=== PATIENT | female | born 1980 | race Caucasian/White ===

== ENCOUNTER 2021-11-15 17:01 | Inpatient (IN) | payer MEDICAID ==
[~2021-11-15] VITALS: Ht 160 cm; Wt 97.3 kg
[2021-11-16 13:00] VITALS: BP 145/71
[2021-11-16] MEDS ORDERED: METF-372 PO (13:48)
[2021-11-16] MEDS ORDERED: AZIT250T9 PO (13:48)
[2021-11-16] MEDS ORDERED: PROM1SOL4 PO (13:48)
[2021-11-16] MEDS ORDERED: LISI-275 PO (13:48)
[2021-11-16] MEDS ORDERED: LEVO50TA7 PO (13:48)
[2021-11-16] MEDS ORDERED: VANCOMYCIN PER PHARMACY 0 MG IV SCH (16:45)
[2021-11-16] MEDS ORDERED: PERMETHRIN 1% TOP ONE (16:45)
[2021-11-16 17:00] VITALS: BP 121/55
[2021-11-16] MEDS: FLORASTOR (S. BOULARDII) 250 MG CAP PO SCH (17:10)
[2021-11-16] MEDS ORDERED: levoFLOXacin 750MG 150 ML IV SCH (18:00)
[2021-11-16 19:06] LABS: Basophils # (auto) 0.2 10 ^3/uL (0-0.2); Basophils % (auto) 1.1 % (0.0-2.0); Eosinophils # (auto) 0.5 10 ^3/uL (0-0.8); Eosinophils % (auto) 3.2 % (0.0-7.0); Hematocrit 46.6 % (36.0-46.0); Hemoglobin 15.4 g/dL (12.2-16.2); Lymphocytes # (auto) 2.2 10 ^3/uL (0.4-5.4); Lymphocytes % (auto) 15.5 % (10.0-50.0); Mean Corpuscular Hemoglobin 30.3 pg (28.0-32.0); Monocytes # (auto) 1.1 10 ^3/uL (0-1.3); Monocytes % (auto) 7.6 % (0.0-12.0); Neutrophils # (auto) 10.3 10 ^3/uL (1.6-8.6); Neutrophils % (auto) 72.6 % (37.0-80.0); Red Blood Cells 5.06 10^6/uL (4.0-5.20); Red Cell Distribution Width 13.4 % (11.8-14.3); White Blood Cell 14.1 10^3/uL (4.4-10.8)
[2021-11-16 19:25] LABS: Albumin 3.4 g/dL (3.4-5.0); Calcium 9.7 mg/dL (8.5-10.1)
[2021-11-16 19:29] LABS: BUN/Creatinine Ratio 19.2; Bilirubin, Total 0.7 mg/dL (0.2-1.0); Total Protein 9.2 g/dL (6.4-8.2)
[2021-11-16] MEDS ORDERED: VANCOMYCIN 1GM/250ML 250 ML IV ONE (20:00)
[2021-11-16 21:00] VITALS: BP 139/80
[2021-11-16] MEDS: metroNIDAZOLE 500MG/100ML 100 ML IV SCH (22:11)
[2021-11-17 04:23] LABS: Urine Bacteria NONE SEEN /hpf (None Seen); Urine Blood Negative /uL (Negative); Urine Hyaline Cast FEW /lpf (0 - 2); Urine Specific Gravity 1.018 (1.001-1.035); Urine WBC 4 /hpf (0 - 5)
[2021-11-17 05:21] VITALS: BP 131/68
[2021-11-17] MEDS: metroNIDAZOLE 500MG/100ML 100 ML IV SCH ×3 (05:38→22:02)
[2021-11-17 08:30] VITALS: BP 143/77
[2021-11-17 13:00] VITALS: BP 137/77
[2021-11-17] MEDS ORDERED: cefTRIAXone 1GM/50ML D5W 50 ML IV ONE (14:15)
[2021-11-17] MEDS ORDERED: FLUCONAZOLE 200MG/100ML 100 ML IV ONE (14:15)
[2021-11-17] MEDS ORDERED: DEXTROSE (50%) 50ML SYRG IV PRN (14:15)
[2021-11-17] MEDS: FLORASTOR (S. BOULARDII) 250 MG CAP PO SCH (15:21)
[2021-11-17] MEDS: VANCOMYCIN 1GM/250ML 250 ML IV SCH ×2 (15:21→16:28)
[2021-11-17] MEDS: ACCU-CHEK COMFORT CURVE STRIP VI SCH ×2 (17:00→22:02)
[2021-11-17 17:08] VITALS: BP 134/85
[2021-11-17] MEDS ORDERED: IOHEXOL 300 MG/ML 100ML BOTTLE IJ ONE (17:57)
[2021-11-17] MEDS: InsuLIN REG 1unit/0.01ml Soln (100units/ml) SC SCH ×2 (19:42→22:03)
[2021-11-17 22:00] VITALS: BP 126/79
[2021-11-17] MEDS: levoFLOXacin 500MG 100 ML IV SCH (23:29)
[2021-11-18 05:00] VITALS: BP 120/61
[2021-11-18] MEDS: metroNIDAZOLE 500MG/100ML 100 ML IV SCH (06:00)
[2021-11-18] MEDS: InsuLIN REG 1unit/0.01ml Soln (100units/ml) SC SCH ×4 (06:29→22:14)
[2021-11-18] MEDS: ACCU-CHEK COMFORT CURVE STRIP VI SCH ×4 (06:29→22:13)
[2021-11-18 06:38] LABS: Basophils # (auto) 0.2 10 ^3/uL (0-0.2); Basophils % (auto) 1.1 % (0.0-2.0); Eosinophils # (auto) 0.4 10 ^3/uL (0-0.8); Hematocrit 43.9 % (36.0-46.0); Hemoglobin 14.5 g/dL (12.2-16.2); Lymphocytes # (auto) 2.4 10 ^3/uL (0.4-5.4); Lymphocytes % (auto) 16.9 % (10.0-50.0); Mean Corpuscular Hemoglobin 30.4 pg (28.0-32.0); Mean Corpuscular Hgb Conc. 33.1 g/dL (32.0-36.0); Monocytes # (auto) 1.1 10 ^3/uL (0-1.3); Monocytes % (auto) 7.8 % (0.0-12.0); Neutrophils % (auto) 71.2 % (37.0-80.0); Nucleated Red Blood Cells % 0.1 %; Red Blood Cells 4.77 10^6/uL (4.0-5.20); Red Cell Distribution Width 13.4 % (11.8-14.3)
[2021-11-18 06:44] LABS: INR 1.13 (0.9-1.15); Partial Thromboplastin Time 29.6 sec (24.6-33.4)
[2021-11-18 06:45] LABS: Potassium 4.3 mmol/L (3.5-5.1)
[2021-11-18 06:50] LABS: Albumin 3.2 g/dL (3.4-5.0); BUN/Creatinine Ratio 23.9; Bilirubin, Total 0.8 mg/dL (0.2-1.0); Calcium 9.1 mg/dL (8.5-10.1); Total Protein 7.7 g/dL (6.4-8.2)
[2021-11-18] MEDS ORDERED: LEVOTHYROXINE SODIUM 50 MCG TAB PO SCH (07:00)
[2021-11-18 09:00] VITALS: BP 141/73
[2021-11-18] MEDS ORDERED: cefTRIAXone 1GM/50ML D5W 50 ML IV SCH (09:00)
[2021-11-18] MEDS ORDERED: FLUCONAZOLE 200MG/100ML 100 ML IV SCH (10:00)
[2021-11-18] MEDS: FLORASTOR (S. BOULARDII) 250 MG CAP PO SCH (10:09)
[2021-11-18] MEDS: LISINOPRIL 5 MG TAB PO SCH (10:09)
[2021-11-18] MEDS: FLUCONAZOLE 200MG/100ML 100 ML IV SCH (10:32)
[2021-11-18 13:00] VITALS: BP 140/75
[2021-11-18] MEDS: metroNIDAZOLE 500 MG TAB PO SCH ×2 (14:00→22:03)
[2021-11-18] MEDS: VANCOMYCIN 1GM/250ML 250 ML IV SCH (14:00)
[2021-11-18 17:00] VITALS: BP 144/71
[2021-11-18] MEDS: levoFLOXacin 500MG 100 ML IV SCH (20:19)
[2021-11-19 01:25] VITALS: BP 127/70
[2021-11-19] MEDS: VANCOMYCIN 1GM/250ML 250 ML IV SCH ×2 (01:56→14:57)
[2021-11-19 05:06] VITALS: BP 152/70
[2021-11-19 06:16] LABS: Basophils # (auto) 0.2 10 ^3/uL (0-0.2); Basophils % (auto) 1.2 % (0.0-2.0); Eosinophils # (auto) 0.5 10 ^3/uL (0-0.8); Eosinophils % (auto) 3.2 % (0.0-7.0); Hemoglobin 14.7 g/dL (12.2-16.2); Lymphocytes # (auto) 2.5 10 ^3/uL (0.4-5.4); Lymphocytes % (auto) 17.6 % (10.0-50.0); Mean Corpuscular Hemoglobin 30.2 pg (28.0-32.0); Mean Corpuscular Hgb Conc. 32.7 g/dL (32.0-36.0); Mean Corpuscular Volume 92.3 fL (80.0-100.0); Monocytes # (auto) 1.2 10 ^3/uL (0-1.3); Monocytes % (auto) 8.4 % (0.0-12.0); Neutrophils # (auto) 9.8 10 ^3/uL (1.6-8.6); Neutrophils % (auto) 69.6 % (37.0-80.0); Red Blood Cells 4.88 10^6/uL (4.0-5.20); Red Cell Distribution Width 13.2 % (11.8-14.3); White Blood Cell 14.1 10^3/uL (4.4-10.8)
[2021-11-19] MEDS: metroNIDAZOLE 500 MG TAB PO SCH ×3 (06:16→21:12)
[2021-11-19] MEDS: ACCU-CHEK COMFORT CURVE STRIP VI SCH ×4 (06:28→21:12)
[2021-11-19] MEDS: LEVOTHYROXINE SODIUM 50 MCG TAB PO SCH (06:28)
[2021-11-19 06:38] LABS: BUN/Creatinine Ratio 19.6; Calcium 9.1 mg/dL (8.5-10.1); Potassium 4.9 mmol/L (3.5-5.1)
[2021-11-19] MEDS: InsuLIN REG 1unit/0.01ml Soln (100units/ml) SC SCH ×4 (06:47→21:51)
[2021-11-19 08:00] VITALS: BP 134/68
[2021-11-19 09:00] VITALS: BP 134/68
[2021-11-19] MEDS: FLUCONAZOLE 200MG/100ML 100 ML IV SCH (09:40)
[2021-11-19] MEDS: LISINOPRIL 5 MG TAB PO SCH (09:40)
[2021-11-19] MEDS: FLORASTOR (S. BOULARDII) 250 MG CAP PO SCH (09:40)
[2021-11-19 13:00] VITALS: BP 134/73
[2021-11-19 22:00] VITALS: BP 118/68
[2021-11-20] MEDS: VANCOMYCIN 1GM/250ML 250 ML IV SCH ×2 (01:55→14:00)
[2021-11-20 05:00] VITALS: BP 136/68
[2021-11-20] MEDS: metroNIDAZOLE 500 MG TAB PO SCH ×2 (06:06→14:00)
[2021-11-20] MEDS: LEVOTHYROXINE SODIUM 50 MCG TAB PO SCH (06:06)
[2021-11-20] MEDS: ACCU-CHEK COMFORT CURVE STRIP VI SCH ×3 (06:45→17:00)
[2021-11-20] MEDS: InsuLIN REG 1unit/0.01ml Soln (100units/ml) SC SCH ×3 (06:56→17:00)
[2021-11-20] MEDS: FLORASTOR (S. BOULARDII) 250 MG CAP PO SCH (08:32)
[2021-11-20] MEDS: FLUCONAZOLE 200MG/100ML 100 ML IV SCH (08:32)
[2021-11-20] MEDS: LISINOPRIL 5 MG TAB PO SCH (08:33)
[2021-11-20 08:36] VITALS: BP 134/70
[2021-11-20] MEDS ORDERED: levoFLOXacin 500 MG TAB PO SCH (10:00)
[2021-11-20] MEDS ORDERED: MET500T PO (12:18)
[2021-11-20] MEDS ORDERED: LEVO-28 PO (12:18)
[2021-11-20] MEDS ORDERED: FLUC200T50 PO (12:18)
[2021-11-20 12:29] VITALS: BP 139/72
[2021-11-20 13:10] VITALS: BP 134/70
== END 2021-11-20 20:37 | disposition home or self-care (01) | DRG 380 ==
LOC: WEST WING 11-16 12:51
PROVIDERS: ADMIT Internal Medicine; ATTEND Internal Medicine
DX: E11.621 Type 2 diabetes mellitus with foot ulcer (principal); L97.529 Non-pressure chronic ulcer of other part of left foot with unspecified severity; L97.519 Non-pressure chronic ulcer of other part of right foot with unspecified severity; J96.10 Chronic respiratory failure, unspecified whether with hypoxia or hypercapnia; L03.315 Cellulitis of perineum; B35.3 Tinea pedis; E03.9 Hypothyroidism, unspecified; N76.0 Acute vaginitis; I10 Essential (primary) hypertension; J44.9 Chronic obstructive pulmonary disease, unspecified; E66.9 Obesity, unspecified; Z83.3 Family history of diabetes mellitus; Z79.84 Long term (current) use of oral hypoglycemic drugs; Z68.38 Body mass index [BMI] 38.0-38.9, adult
CPT/HCPCS: 36415; 71045; 73620; 80048; 80053; 80202; 81001; 81025; 82962; 83036; 83605; 84443; 85025; 85610; 85730; 87040; G0378; J1450; J1815; J1956; J3490

== ENCOUNTER 2023-08-21 06:01 | Inpatient (IN) | payer MEDICAID ==
[~2023-08-21] VITALS: Ht 160 cm; Wt 94.7 kg
[~2023-08-21 06:01] MED LIST: AZIT-43 PO; FLUC200T50 PO; LEVO500T91 PO; LEVO50TA7 PO; LISI-275 PO; MET500T PO; METF-372 PO; PROM1SOL4 PO
[2023-08-21 07:27] VITALS: PULSE 93; RESP 9; O2SAT 95
[2023-08-21 08:37] LABS: Basophils # (auto) 0.2 10 ^3/uL (0-0.2); Basophils % (auto) 1.4 % (0.0-2.0); Eosinophils # (auto) 0.4 10 ^3/uL (0-0.8); Eosinophils % (auto) 3.2 % (0.0-7.0); Hematocrit 47.1 % (36.0-46.0); Hemoglobin 16.2 g/dL (12.2-16.2); Lymphocytes # (auto) 1.8 10 ^3/uL (0.4-5.4); Lymphocytes % (auto) 15.1 % (10.0-50.0); Mean Corpuscular Hemoglobin 31.2 pg (28.0-32.0); Mean Corpuscular Hgb Conc. 34.4 g/dL (32.0-36.0); Mean Corpuscular Volume 90.7 fL (80.0-100.0); Monocytes # (auto) 0.9 10 ^3/uL (0-1.3); Neutrophils # (auto) 8.6 10 ^3/uL (1.6-8.6); Neutrophils % (auto) 72.3 % (37.0-80.0); Nucleated Red Blood Cells % 0.3 %; Red Blood Cells 5.19 10^6/uL (4.0-5.20); Red Cell Distribution Width 15.6 % (11.8-14.3); White Blood Cell 11.9 10^3/uL (4.4-10.8)
[2023-08-21 08:39] LABS: Chloride 109 mmol/L (98-107); Sodium 143 mmol/L (136-145)
[2023-08-21 08:40] LABS: Anion Gap 8 (5-15); Carbon Dioxide 26 mmol/L (20-30)
[2023-08-21 08:45] LABS: BUN/Creatinine Ratio 25.5 (10.0-20.0); Blood Urea Nitrogen 14 mg/dL (9-23); Glucose 117 mg/dL (74-106)
[2023-08-21] MEDS: SODIUM CHLORIDE 0.9% 1,000 ML IV ONE (08:48)
[2023-08-21] MEDS ORDERED: MORPHINE SULFATE INJ 2 MG/ml SYRG IV PRN (11:30)
[2023-08-21] MEDS ORDERED: LORazepam 2MG/ML-1ML VIAL IV PRN (11:30)
[2023-08-21] MEDS ORDERED: ALBUTEROL SULF 2.5 MG/0.5ML(0.5%) NEB SOLN NEB PRN (11:30)
[2023-08-21] MEDS ORDERED: DOCUSATE SOD 100 MG CAP PO PRN (11:30)
[2023-08-21] MEDS ORDERED: IPRATROPIUM BROM 0.5 MG/2.5ML INH SOL NEB PRN (11:30)
[2023-08-21] MEDS ORDERED: NITROGLYCERIN 0.4 MG SL TAB SL PRN (11:30)
[2023-08-21] MEDS ORDERED: ONDANSETRON HCL 4 MG/2 ML VIAL IV PRN (11:30)
[2023-08-21] MEDS: levoFLOXacin 500MG 100 ML IV ONE (12:05)
[2023-08-21 12:10] VITALS: BP 132/65; PULSE 89; RESP 18; TEMP 98.7; O2SAT 96
[2023-08-21] MEDS: levETIRAcetam 1000 mg/100ml 100 ML IV ONE (12:53)
[2023-08-21] MEDS: SODIUM CHLORIDE 0.9% 1,000 ML IV SCH (12:53)
[2023-08-21 16:56] VITALS: PULSE 68; RESP 18; O2SAT 98
[2023-08-21 17:00] VITALS: BP 128/73; PULSE 88; RESP 18; TEMP 98; O2SAT 96
[2023-08-21 19:35] VITALS: O2SAT 95
[2023-08-21 21:00] VITALS: BP 117/57; PULSE 86; RESP 19; TEMP 98.2; O2SAT 97
[2023-08-21] MEDS: levETIRAcetam 1000 mg/100ml 100 ML IV SCH (21:00)
[2023-08-22] VITALS (7 sets, daily range): BP systolic 114–143; BP diastolic 58–77; PULSE 71–86; RESP 16–19; TEMP 97.5–98.6; O2SAT 94–100
[2023-08-22 06:47] LABS: Basophils # (auto) 0.1 10 ^3/uL (0-0.2); Basophils % (auto) 1.1 % (0.0-2.0); Eosinophils # (auto) 0.5 10 ^3/uL (0-0.8); Eosinophils % (auto) 5.5 % (0.0-7.0); Hematocrit 43.8 % (36.0-46.0); Hemoglobin 14.8 g/dL (12.2-16.2); Lymphocytes # (auto) 2.1 10 ^3/uL (0.4-5.4); Lymphocytes % (auto) 22.6 % (10.0-50.0); Mean Corpuscular Hemoglobin 30.6 pg (28.0-32.0); Mean Corpuscular Hgb Conc. 33.8 g/dL (32.0-36.0); Mean Corpuscular Volume 90.6 fL (80.0-100.0); Monocytes # (auto) 0.9 10 ^3/uL (0-1.3); Monocytes % (auto) 9.1 % (0.0-12.0); Neutrophils # (auto) 5.9 10 ^3/uL (1.6-8.6); Neutrophils % (auto) 61.7 % (37.0-80.0); Red Blood Cells 4.83 10^6/uL (4.0-5.20); Red Cell Distribution Width 15.4 % (11.8-14.3); White Blood Cell 9.5 10^3/uL (4.4-10.8)
[2023-08-22 06:48] LABS: Alanine Aminotransferase 21 U/L (7-40); Albumin 3.6 g/dL (3.2-4.8); Alkaline Phosphatase 73 U/L (46-116); Anion Gap 5 (5-15); Aspartate Aminotransferase 15 U/L (13-40); BUN/Creatinine Ratio 14.9 (10.0-20.0); Blood Urea Nitrogen 10 mg/dL (9-23); Calcium 8.5 mg/dL (8.5-10.1); Carbon Dioxide 28 mmol/L (20-30); Chloride 107 mmol/L (98-107); Glucose 113 mg/dL (74-106); Potassium 3.9 mmol/L (3.5-5.1); Sodium 140 mmol/L (136-145)
[2023-08-22 06:49] LABS: Bilirubin, Total 0.3 mg/dL (0.2-1.0); Total Protein 6.5 g/dL (5.7-8.2)
[2023-08-22] MEDS: LISINOPRIL 5 MG TAB PO SCH (10:36)
[2023-08-22] MEDS: levoFLOXacin 500MG 100 ML IV SCH (11:40)
[2023-08-23] VITALS (8 sets, daily range): BP systolic 119–137; BP diastolic 64–67; PULSE 71–85; RESP 14–19; TEMP 98–98.4; O2SAT 92–99
[2023-08-23] MEDS: MORPHINE SULFATE INJ 2 MG/ml SYRG IV PRN (09:12)
[2023-08-24] VITALS (8 sets, daily range): BP systolic 131–187; BP diastolic 57–70; PULSE 68–82; RESP 17–19; TEMP 97.5–98.3; O2SAT 95–99
[2023-08-25] VITALS (9 sets, daily range): BP systolic 125–154; BP diastolic 56–77; PULSE 71–84; RESP 16–20; TEMP 97.8–98.3; O2SAT 95–99
[2023-08-25] MEDS ORDERED: diphenhdrAMINE HCL 25 MG CAP PO ONE (01:30)
[2023-08-26 05:00] VITALS: BP 134/62; PULSE 77; RESP 16; TEMP 98.8; O2SAT 94
[2023-08-26 09:00] VITALS: BP 143/64; PULSE 74; RESP 20; TEMP 98.3; O2SAT 97
[2023-08-26] MEDS: PHENYTOIN SODIUM 100 MG CAP PO SCH (09:19)
[2023-08-26 13:00] VITALS: BP 141/63; PULSE 70; RESP 18; TEMP 98.2; O2SAT 97
[2023-08-26 14:48] VITALS: BP 141/63; PULSE 70; RESP 18; TEMP 98.2
[2023-08-26 17:00] VITALS: BP 143/69; PULSE 74; RESP 18; TEMP 98.7; O2SAT 98
== END 2023-08-26 17:29 | disposition home or self-care (01) | DRG 53 ==
LOC: ER 06:01 → OVERFLOW 11:28 → WEST WING 16:18
PROVIDERS: ADMIT Nurse Practitioner Family; ATTEND Internal Medicine
DX: G40.401 Other generalized epilepsy and epileptic syndromes, not intractable, with status epilepticus (principal); I69.354 Hemiplegia and hemiparesis following cerebral infarction affecting left non-dominant side; I10 Essential (primary) hypertension; J44.9 Chronic obstructive pulmonary disease, unspecified; E03.9 Hypothyroidism, unspecified; E11.9 Type 2 diabetes mellitus without complications; E66.9 Obesity, unspecified; Z88.0 Allergy status to penicillin; Z87.442 Personal history of urinary calculi; Z74.01 Bed confinement status; Z82.0 Family history of epilepsy and other diseases of the nervous system; Z83.3 Family history of diabetes mellitus; Z82.49 Family history of ischemic heart disease and other diseases of the circulatory system; Z68.37 Body mass index [BMI] 37.0-37.9, adult
CPT/HCPCS: 36415; 70450; 80048; 80053; 80185; 85025; 96361; 96365; 96368; 97110; 97163; 97530; G0378; J1956